=== PATIENT | female | born 1980 | race Caucasian/White ===

== ENCOUNTER → 2018-10-27 12:30 | Outpatient (CLI) | payer MEDICAID ==
[2014-08-22 13:06] VITALS: BMI 24.3
[~2018-10-27 12:30] MED LIST: AMBIEN5 MG PO; IBUPROFEN200 MG PO; IBUPROFEN600 MG PO; MINIVELLE1 EAC1 TRANSDERM; MULTIPLE VITAMI1 TA1 PO; OXYCODONE HCL5 MG PO
== END | disposition home or self-care (01) ==
LOC: D.MAMMO 10-07 10:30
PROVIDERS: ATTEND Nurse Practitioner Family
DX: Z12.31 Encounter for screening mammogram for malignant neoplasm of breast (principal)

== ENCOUNTER 2019-11-25 19:44 | Emergency (ER) | payer MEDICAID ==
[~2019-11-25] VITALS: Ht 160 cm; Wt 61.4 kg
[2019-11-25 20:04] VITALS: Ht 160 cm; Wt 61.4 kg
[2019-11-25 20:31] LABS: BILIRUBIN NEGATIVE (NEGATIVE); GLUCOSE NEGATIVE (NEGATIVE); KETONE NEGATIVE (NEGATIVE); NITRITE NEGATIVE (NEGATIVE); UROBILINOGEN NORMAL (NORMAL)
[2019-11-25 20:32] LABS: HCG URINE NEGATIVE (NEGATIVE)
[2019-11-25 20:36] LABS: RED CELLS - URINE 0-5 /hpf (0-5); WHITE CELLS - URINE >50 /hpf (NEGATIVE)
[2019-11-25 20:37] LABS: AMORPHOUS SEDIMENT >1+ /lpf (NONE SEEN); BACTERIA MODERATE /hpf (NEGATIVE); EPITHELIAL CELLS 0-5 /hpf (0-5)
[2019-11-25] MEDS ORDERED: OMNICEF300 MG PO (20:47)
[2019-11-25 21:35] VITALS: BP 118/67
== END 2019-11-25 21:35 | disposition home or self-care (01) ==
LOC: D.ER 19:44
PROVIDERS: Family Medicine
DX: N39.0 Urinary tract infection, site not specified (principal); Z20.2 Contact with and (suspected) exposure to infections with a predominantly sexual mode of transmission